=== PATIENT | male | born 1980 | race Two or more races ===

== ENCOUNTER 2021-02-04 13:42 | Emergency (ER) | payer OTHER, SELFPAY ==
--- NOTE | ~2021-02-04 | XR_ITS ---
EXAMINATION: XR KNEE, RIGHT CLINICAL INFORMATION: Right knee pain. Question fracture. COMPARISON: None TECHNIQUE: Four views of the right knee. FINDINGS: There is no evidence of acute fracture or dislocation of the right knee. There is a small right knee effusion. Joint spaces are maintained. Bone island is seen within the lateral femoral condyle. XR/XR knee RT 4V IMPRESSION: Small right knee effusion without underlying bony abnormality detected.
[2021-02-04 14:11] VITALS: BP 151/87; PULSE 62; RESP 18; TEMP 36.8; O2SAT 100; BMI 25.8
[2021-02-04 16:31] VITALS: BP 148/93; PULSE 60; RESP 16; O2SAT 99
--- NOTE | 2021-02-04 16:36 | PC.NURSE ---
R KNEE +CMS WITH INCREASE PAIN WITH MOVEMENT. NO REDNESS/SWELLING NOTED.
--- NOTE | 2021-02-04 16:50 | ED_ITS ---
HPI - Extremity Injury (Lower) General Chief Complaint: Extremity Injury, Lower Stated Complaint: knee pain Time Seen by Provider: 02/04/21 15:27 Source: patient Mode of arrival: ambulatory Limitations: no limitations History of Present Illness HPI Narrative: Patient presents to ED for right knee pain. Patient states he was training and he turned his knee and automatically heard a pop in his right knee and ever since has had pain. Denies Any blunt trauma to the knee or falling to the ground. Patient denies any redness to knee or lower extremities. Patient denies any drug abuse. Patient denies falling to the ground. Related Data Previous Rx's Medication Instructions Recorded naproxen 500 mg PO BID PRN #20 tab 02/04/21 Allergies Allergy/AdvReac Type Severity Reaction Status Date / Time No Known Allergies Allergy Verified 02/04/21 14:15 [No Known Allergies*] Review of Systems Review of Systems: Yes all other systems are reviewed and are negative Constitutional: Constitutional: Reports as per HPI and Reports no additional constitutional complaints Eyes: Eyes: Reports as per HPI and Reports no additional eye complaints ENT: Reports system reviewed and no additional complaints, except as documented and Reports as per HPI Cardiovascular: Cardiovascular: Reports as per HPI and Reports no additional cardiovascular complaints Respiratory: Respiratory: Reports as per HPI and Reports no additional respiratory complaints Gastrointestinal: Gastrointestinal: Reports as per HPI and Reports no additional gastrointestinal complaints Genitourinary: Genitourinary: Reports no additional male genitourinary complaints and Reports as per HPI Musculoskeletal: Musculoskeletal: Reports no additional musculoskeletal complaints, Reports as per HPI and Reports arthralgias (Right knee) Neurologic: Reports system reviewed and no additional complaints, except as documented and Reports as per HPI Psychiatric: Psychiatric: Reports no additional psychiatric complaints and Reports as per HPI [facility] Social History Social History Advance Directives: No Advance Directives Information Provided: Yes Physical Exam Vital Signs: Vital Signs: Last Vital Signs Temp 98.2 F 02/04/21 14:11 Pulse 60 02/04/21 16:31 Resp 16 02/04/21 16:31 BP 148/93 H 02/04/21 16:31 Pulse Ox 99 02/04/21 16:31 Body Mass Index 25.8 Const: General: cooperative, healthy appearing, comfortable, no acute distress, well developed, alert, awake and Physically active; No lethargic Orientation/consciousness: patient oriented x3 and No lethargic HENMT: Head: Yes normal to inspection, Yes No palpable skull fracture present, Yes normocephalic and Yes atraumatic Eyes: General: appearance normal, both eyes and all related structures Neck: Neck: Yes normal visual inspection, Yes full ROM, Yes no lymphadenopathy, Yes no meningeal signs, Yes trachea midline, Yes supple and No tender Chest: Chest palpation & inspection: normal inspection of the chest and normal palpation of entire chest wall Resp: Effort & Inspection: normal respiratory effort and able to speak in complete sentences Auscultation: clear to auscultation bilaterally Cardio: Jugular venous distension: no JVD Heart sounds: S1 normal heart sound present and S2 normal heart sound present GI: Inspection: Yes normal to inspection and No abdominal wall ecchymosis Palpation (GI): Soft to palpation, not firm, nontender, no guarding and not rigid : General: No CVA tenderness and Yes no CVA tenderness Back/Spine/Pelvis: Back: no CVA tenderness, No CVA tenderness and No back tenderness Skin: General skin exam: no rashes or lesions noted and elasticity normal Neuro: General: patient oriented x3, no meningeal signs and CN's II-XI intact bilaterally Cranial nerves: Yes CN's II-XII intact bilaterally Extrem: Other: Right lower extremity: Positive for medial right knee pain. Negative for any redness or joint stiffness. Right leg/ankle/foot negative for ecchymosis, tenderness, erythema, deformity. Vascular/motor/neuro exam of right lower extremity intact Psych: Appearance: grossly normal, well kempt and not disheveled Course Course Course Narrative: Patient will be sent for right knee x-ray to rule out fracture. Reevaluation(s) Reevaluation #1: X-ray negative for fracture but shows small effusion. Patient did sudden movement and feeling pain in right knee and now has small effusion most likely indicate meniscus or ligament tear. Patient informed he will need follow-up with Orthopedics. Not suspect septic joint. MDM - Extremity Injury (Lower) MDM Narrative Medical decision making narrative: Knee sprain Discharge Plan Discharge Clinical Impression: Sprain of knee Patient Disposition: Home, Self-Care Instructions: Knee Sprain (ED) Additional Instructions: Return to the ED immediately worsening swelling of knee, redness, inability to walk, bluish discoloration of lower extremity, coldness, hotness, fever, chills, or any other concerning symptoms. X-ray shows small joint effusion most likely you have a meniscus or ligament tear. Will require MRI as outpatient workup. Needs follow-up with Orthopedics before return work. Prescriptions: New naproxen 500 mg tablet 500 mg PO BID PRN (Reason: pain) Qty: 20 RF: 0 Referrals: [facility] [Provider Group] - 2 days (Right knee sprain. X-ray shows small effusion. Event occurred at work. Will need outpatient MRI to confirm meniscus or ligament tear.) Vince Rivas MD [Physician] - 2 days (Right knee sprain with small infusion as per x-ray. Will need MRI to confirm meniscus or ligament tear.) Stand Alone Forms: Work/School Release Interventions: ED Discharge Assessment Last Done: 02/04/21 17:09 Discharge Date/Time: 02/04/21 17:13 Print Language: Greenlandic
== END 2021-02-04 17:13 | disposition home or self-care (01) ==
PROVIDERS: Emergency Provider Emergency Medicine
DX: S83.91XA Sprain of unspecified site of right knee, initial encounter (principal); X50.1XXA Overexertion from prolonged static or awkward postures, initial encounter; M25.461 Effusion, right knee; Y93.A4 Activity, circuit training; Y92.84 Military training ground as the place of occurrence of the external cause; Y99.0 Civilian activity done for income or pay
CPT/HCPCS: 73564; 99283; 99284

== ENCOUNTER 2021-02-13 07:40 | Outpatient (REF) | payer OTHER, SELFPAY ==
--- NOTE | ~2021-02-13 | XR_ITS ---
EXAMINATION: XR KNEE, RIGHT CLINICAL INFORMATION: Pain COMPARISON: Previous x-ray 02/04/2021 TECHNIQUE: [place] view of the right knee. FINDINGS: Bone alignment is normal. No bone or soft tissue abnormality is seen. XR/XR knee RT 2V IMPRESSION: Normal sunrise view of the right knee.
== END 2021-02-13 07:41 | disposition home or self-care (01) ==
LOC: HO.HOSX 07:40
PROVIDERS: Visit Provider Physician Assistant
DX: S83.001A Unspecified subluxation of right patella, initial encounter (principal); X58.XXXA Exposure to other specified factors, initial encounter; Y93.9 Activity, unspecified; Y92.9 Unspecified place or not applicable; Y99.0 Civilian activity done for income or pay
CPT/HCPCS: 73560; 99202

== ENCOUNTER 2021-03-17 13:00 | Outpatient (RCR) | payer OTHER, SELFPAY ==
--- NOTE | 2021-02-27 17:59 | MHC.PT.EP ---
[facility] [place] Office [place] Office [place] Office [address] Kasie Crandall [address] [phone] F: [phone] F: [phone] F: [phone] F: [phone] Physical Therapy Plan of Care Date of Evaluation: Date of Surgery: Diagnosis: Subluxation of R patella Assessment: Pt is a 40 y/o male who works for the [employer] and is referred to PT for eval and treat of R patella subluxation who presents with signs and Sx consistent with R knee dysfunction resulting in decreased tolerance for jogging and running, kneeling, walking and standing for long duration, squatting and performing heavy HH chores secondary to decreased R knee and B glute med strength, non symmetrical patella alignment, 5 degree R knee hyper extension, and pain. Pt is deemed an appropriate candidate to receive skilled PT services in order to address his physical limitations to improve his functional ability. Frequency and Duration: The patient will be seen 2 x / wk x 6 wks. Short Term Goals: Initiate HEP. Initiate return to running program. Mcc Goals: Pt will be able to tolerate TM jog x 5 min with managed Sx. Pt will improved R knee extension MMT to > 4+/5. (initial 4/5) I with HEP. Treatment Plan: Modalities to reduce pain, spasms and effusion. Manual therapy to restore motion and function. Therapeutic exercise to improve strength and flexibility. Neuromuscular re-education for posture and balance. Therapeutic activities to return to functional activities of daily living. Electronically signed by: Yohan Monterroso PT. Please sign and return to therapist. Thank you for your referral.
--- NOTE | 2021-05-12 11:50 | MHC.PT.DC ---
[facility] [place] Office [place] Office [place] Office [address] Kasie Crandall [address] [phone] F: [phone] F: [phone] F: [phone] F: [phone] Physical Therapy Discharge Report Diagnosis: Subluxation of R patella Date of Surgery: Date of Evaluation: 02/27/21 Date of Discharge: 05/12/21 Treatments to Date: 5 Cancellations to Date: No Shows to Date: Discharge Status: Improved Function Independent with HEP Patient Elected to Stop Discharge Summary: Pt reports appropriate mm soreness, no pain. continue as jordin. Pt away x 2 wks for work and will call re. continuation of program. Electronically signed by: Yohan Monterroso PT. Please sign and return to therapist. Thank you for your referral.
== END 2021-05-12 11:51 | disposition home or self-care (01) ==
LOC: HO.PTCHIC 13:00
PROVIDERS: Visit Provider Physician Assistant
DX: S83.001A Unspecified subluxation of right patella, initial encounter (principal)
CPT/HCPCS: 97110; 97161; 97530

== ENCOUNTER → 2022-02-23 10:30 | Outpatient (BNVA) | payer OTHER, SELFPAY | PROVIDERS: Visit Provider Surgery | DX: K42.9 Umbilical hernia without obstruction or gangrene (principal) | CPT/HCPCS: 99202 ==

== ENCOUNTER → 2022-11-19 09:57 | Outpatient (BNVA) | payer OTHER, SELFPAY | PROVIDERS: PCP Nurse Practitioner Family; Referring Provider Nurse Practitioner Family; Visit Provider Surgery | DX: D36.17 Benign neoplasm of peripheral nerves and autonomic nervous system of trunk, unspecified (principal) | CPT/HCPCS: 99212 ==

== ENCOUNTER 2023-01-06 09:26 | Outpatient (REF) | payer OTHER, SELFPAY ==
[2023-01-06 09:35] VITALS: BMI 26.3
[2023-01-06 09:36] VITALS: BP 137/93; PULSE 76; RESP 16; TEMP 36.5; O2SAT 99
--- NOTE | 2023-01-06 10:38 | W.PM.OPN ---
Operative Note Operative Note Date of Service: 01/06/23 Narrative: Preoperative diagnosis:Mid back neurofibroma Postoperative diagnosis:same Procedure:excision of mid back neurofibroma Surgeon: Israel Ly MD [employer]: Anesthesia:local Indications for procedure: 42-year-old male patient presenting with a palpable mass measuring approximately 1.5 cm in diameter in the mid back, gradually increasing in size. No ulceration or bleeding is noted. Lesion is reddened on the surface. Operative findings: 1.5 cm epidermal lesion extending into dermis suggestive of a neurofibroma or fibroma. Specimen: Lesion mid back Estimated blood loss: Less than 2 mL Complications: None Procedure details: Patient was brought to the minor surgery suite placed in a prone position. The site of surgery was confirmed by the patient in the mid back. After assuring informed consent the skin was prepped with Betadine and draped in a sterile fashion. Local anesthesia was infiltrated around the lesion oriented transversely. Elliptical incision was then made transversely around the lesion carried out through subcutaneous tissue. Sharp dissection was then used to dissect the lesion off the subcutaneous tissue. This was then passed off table to sent to pathology for further examination. Light pressure was held to maintain hemostasis. Deep dermis was then reapproximated using interrupted 3-0 Polysorb sutures. Skin was closed using interrupted 3-0 Prolene sutures. Sterile dressings consisting of 2 x 2 gauze and Tegaderm were then applied. The patient tolerated the procedure well. He was discharged to home in stable condition.
[2023-01-06 10:40] VITALS: BP 150/88; PULSE 70; RESP 16
== END 2023-01-06 09:27 | disposition home or self-care (01) ==
LOC: HO.MS 09:26
PROVIDERS: Visit Provider Surgery
PROC: (CPT 11402; principal; 2023-01-06 10:00)
DX: D36.17 Benign neoplasm of peripheral nerves and autonomic nervous system of trunk, unspecified (principal)
CPT/HCPCS: 11402; 88304; 88305

== ENCOUNTER → 2023-01-14 09:10 | Outpatient (BNVA) | payer OTHER, SELFPAY | PROVIDERS: Visit Provider Surgery ==